=== PATIENT | female | born 1990 | race Caucasian/White ===

== ENCOUNTER 2019-11-11 05:23 | Emergency (ER) | payer OTHER ==
--- NOTE | 2019-11-11 05:32 | PDOC ---
History of Present Illness - General Stated Complaint: SORE THROAT,BODYACHE, FEVER Time Seen by Provider: 11/11/19 05:32 Past History - Past Medical History Allergies/Adverse Reactions: Allergies Allergy/AdvReac Type Severity Reaction Status Date / Time No Known Drug Allergies Allergy Verified 10/01/16 20:20 Home Medications: Ambulatory Orders Ibuprofen 600 mg PO Q6H PRN #18 tablet 10/01/16 Loratadine [Claritin -] 10 mg PO DAILY 10/01/16 Montelukast Na [Singulair -] 10 mg PO HS 10/01/16 Anemia: No Asthma: Yes (DX 2012-ALLERGY INDUCED) Cancer: No Cardiac Disorders: No CVA: No COPD: No CHF: No Dementia: No Diabetes: No GI Disorders: No Disorders: No HTN: No Hypercholesterolemia: No Liver Disease: No Seizures: No Thyroid Disease: No - Surgical History Abdominal Surgery: No Appendectomy: No Cardiac Surgery: No Cholecystectomy: No Lung Surgery: Yes (tumor removal) Neurologic Surgery: No Orthopedic Surgery: No - Psycho Social/Smoking Cessation Hx Smoking History: Never smoked Have you smoked in the past 12 months: No Hx Alcohol Use: No Drug/Substance Use Hx: No Substance Use Type: None Hx Substance Use Treatment: No Medical Decision Making - Medical Decision Making 11/11/19 06:14 29 y/o F with hx of mild asthma, prsents to the ED with cough, nasal congestion and myalgias. Symptoms began yesterday. She had a fever and chills at home as well as 1 episode of NBNB emesis . She took ibuprofen at home which relieved her fever , but her myalgias persist and she has been unable to sleep. She endorse productive cough (light green phlegm), night sweats, headache. She denies chest pain/shortness of breath.She works at a hospital ROS GENERAL/CONSTITUTIONAL: No fever or chills. No weakness. HEAD, EYES, EARS, NOSE AND THROAT: No change in vision. No ear pain or discharge. +sore throat. CARDIOVASCULAR: No chest pain or shortness of breath RESPIRATORY: + cough, no wheezing/ hemoptysis. GASTROINTESTINAL: No diarrhea or constipation. GENITOURINARY: No dysuria, frequency, or change in urination. MUSCULOSKELETAL: +myalgias SKIN: No rash NEUROLOGIC: No vertigo, loss of consciousness, or change in strength/sensation. ENDOCRINE: No increased thirst. No abnormal weight change HEMATOLOGIC/LYMPHATIC: No anemia, easy bleeding, or history of blood clots. ALLERGIC/IMMUNOLOGIC: No hives or skin allergy. PE: GENERAL: Awake, alert, and fully oriented, in no acute distress HEAD: No signs of trauma, normocephalic, atraumatic EYES: PERRLA, EOMI, sclera anicteric, conjunctiva clear ENT: Auricles normal inspection, hearing grossly normal, nares patent, oropharynx clear without exudates. +nasal congestion NECK: Normal ROM, supple, no lymphadenopathy, JVD, or masses LUNGS: No distress, speaks full sentences, clear to auscultation bilaterally HEART: Regular rate and rhythm, normal S1 and S2, no murmurs, rubs or gallops, peripheral pulses normal and equal bilaterally. ABDOMEN: Soft. mild epigastric tenderness, normoactive bowel sounds. No guarding, no rebound. No masses EXTREMITIES : Normal inspection, Normal range of motion, no edema. No clubbing or cyanosis NEUROLOGICAL: Cranial nerves II through XII grossly intact. Normal speech, normal gait, no focal sensorimotor deficits SKIN: Warm, Dry, normal turgor, no rashes or lesions noted. 11/11/19 06:15 Workup flu swab rapid strep meds: tylenol 975mg PO 11/11/19 06:22 Discharge - Discharge Information Problems reviewed: Yes Clinical Impression/Diagnosis: Flu Condition: Stable Disposition: HOME - Additional Discharge Information Goals: Please return to the emergency department with any new or worsening symptoms or concerns. Please follow up with your primary care physician within 72 hours. Continue to take Tylenol 650 mg and/or Motrin 400 mg every 6-8 hours as needed for symptom relief. - Follow up/Referral Referrals: Inna Morrell [Primary Care Provider] - - Patient Discharge Instructions Patient Printed Discharge Instructions: Influenza, DI for Viral Upper Respiratory Infection -- Adult - Post Discharge Activity Work/Back to School Note: Back to Work
[2019-11-11 05:51] VITALS: BP 112/67; PULSE 87; TEMP 98.5; BMI 28.3
[2019-11-11] MEDS ORDERED: ACETAMINOPHEN 500 MG TABLET (FP) PO ONE (06:21)
--- NOTE | 2019-11-11 06:30 | PDOC ---
Attending Attestation - Resident Resident Name: Airam Vyas - ED Attending Attestation I have performed the following: I have examined & evaluated the patient, The case was reviewed & discussed with the resident, I agree w/resident's findings & plan, Exceptions are as noted - HPI HPI: 11/24/19 20:21 See resident HPI - Physicial Exam PE: 11/24/19 20:21 Agree with documented exam - Medical Decision Making 11/24/19 20:21 29F pmh asthma here with viral syndrome endorsing f/c, productive cough, congestion, myalgias flu swab symptomatic tx re-eval +flu A improved dc
[2019-11-11] MEDS ORDERED: ACETAMINOPHEN 325 MG TABLET (FP) ONE (06:33)
== END 2019-11-11 07:05 | disposition home or self-care (01) ==
LOC: JER 05:23
DX: R07.0 Pain in throat (principal)
CPT/HCPCS: 87070; 87804; 87880; 99282-25